=== PATIENT | male | born 1970 | race Caucasian/White ===

== ENCOUNTER → 2018-09-28 | Outpatient (CLI) | payer BC, OTHER | LOC: MRI 07:08 | DX: S63.511A Sprain of carpal joint of right wrist, initial encounter (principal); M65.831 Other synovitis and tenosynovitis, right forearm; X58.XXXA Exposure to other specified factors, initial encounter; Y93.89 Activity, other specified; Y92.89 Other specified places as the place of occurrence of the external cause; Y99.8 Other external cause status ==

== ENCOUNTER → 2021-11-20 | Outpatient (CLI) | payer OTHER | LOC: CAT 08:01 | PROVIDERS: ATTEND Family Medicine | DX: Z13.6 Encounter for screening for cardiovascular disorders (principal); I25.10 Atherosclerotic heart disease of native coronary artery without angina pectoris ==